=== PATIENT | female | born 1975 | race Caucasian/White ===

== ENCOUNTER 2016-11-16 21:05 | Emergency (ER) | payer OTHER ==
[~2016-11-16] VITALS: Ht 177.8 cm; Wt 76.2 kg
[2016-11-16] MEDS ORDERED: IV NS 0.9% 1,000 ML ONE (21:14)
[2016-11-16] MEDS ORDERED: IV SET PRIMARY 1 EA INFUS.SET MC ONE (21:14)
[2016-11-16] MEDS ORDERED: ONDANSETRON HCL/PF 4 MG/2 ML VIAL ONE (21:14)
[2016-11-16] MEDS ORDERED: HYDROMORPHONE 1 MG/1 ML DISP.SYRIN ONE ×2 (21:14→21:49)
[2016-11-16] MEDS ORDERED: ONDANSETRON HCL/PF - ER 4 MG/2 ML VIAL IV ONE (21:30)
[2016-11-16] MEDS ORDERED: IV NS 0.9% 1,000 ML BAG IV ONE (21:30)
[2016-11-16] MEDS ORDERED: HYDROMORPHONE 1 MG/1 ML DISP.SYRIN IV ONE ×2 (21:30→22:00)
[2016-11-16] MEDS ORDERED: SILVER SULFADIAZINE CREAM 25 GM TUBE TP ONE (22:00)
[2016-11-16] MEDS ORDERED: SILVER SULFADIAZINE CREAM 25 GM TUBE ONE (22:07)
[2016-11-16 22:38] VITALS: BP 124/80
== END 2016-11-16 22:41 | disposition home or self-care (01) ==
LOC: ER 21:10
DX: T23.002A Burn of unspecified degree of left hand, unspecified site, initial encounter (principal); T23.232A Burn of second degree of multiple left fingers (nail), not including thumb, initial encounter; X08.8XXA Exposure to other specified smoke, fire and flames, initial encounter; Y93.G3 Activity, cooking and baking; Y92.89 Other specified places as the place of occurrence of the external cause; Y99.8 Other external cause status; Z88.0 Allergy status to penicillin; Z88.1 Allergy status to other antibiotic agents
CPT/HCPCS: A4606; J1170; J2405; J7030; Z7610

== ENCOUNTER 2017-05-01 17:40 | Emergency (ER) | payer OTHER ==
[~2017-05-01] VITALS: Ht 177.8 cm; Wt 74.8 kg
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
--- NOTE | 2017-05-01 19:42 | NUR ---
Patient discharged to home in stable condition. Written and verbal after care instructions given. Patient verbalizes understanding of instruction. AMBULATORY WITH STEADY GAIT.
--- NOTE | 2017-05-01 19:51 | NUR ---
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 Written and verbal after care instructions given. Patient verbalizes understanding of instruction.
[2017-05-01 19:52] VITALS: BP 131/82
== END 2017-05-01 19:52 | disposition home or self-care (01) ==
LOC: ER 17:41
DX: S13.4XXA Sprain of ligaments of cervical spine, initial encounter (principal); Z88.0 Allergy status to penicillin; Z88.1 Allergy status to other antibiotic agents; W01.0XXA Fall on same level from slipping, tripping and stumbling without subsequent striking against object, initial encounter; Y93.42 Activity, yoga; Y92.89 Other specified places as the place of occurrence of the external cause; Y99.9 Unspecified external cause status
CPT/HCPCS: 72125-TC; 84703-TC; A4606; Z7610

== ENCOUNTER 2017-05-17 16:09 | Emergency (ER) | payer OTHER ==
[~2017-05-17] VITALS: Ht 180.3 cm; Wt 74.8 kg
[2017-05-17] MEDS ORDERED: TETRACAINE HCL/PF 0.5% UD 2 ML BOTTLE ONE (17:40)
--- NOTE | 2017-05-17 17:50 | NUR ---
SUDDEN LEFT EYE PRESSURE; STARTED THIS MORNING.
--- NOTE | 2017-05-17 17:51 | NUR ---
SEEN BY CRISTHIAN ARREDONDO
--- NOTE | 2017-05-17 17:54 | NUR ---
US OF THE LEFT - ORDERED
[2017-05-17] MEDS ORDERED: LORAZEPAM 1 MG TABLET PO ONE (19:00)
[2017-05-17] MEDS ORDERED: LORAZEPAM 1 MG TABLET ONE (19:29)
--- NOTE | 2017-05-17 20:20 | NUR ---
CALLED [facility] SPOKE WITH MATTHEW, HE SAID HE WOULD CALL ME BACK.
[2017-05-17 21:25] VITALS: BP 136/84
== END 2017-05-17 21:28 | disposition home or self-care (01) ==
LOC: ER 16:11
DX: H40.052 Ocular hypertension, left eye (principal); H33.22 Serous retinal detachment, left eye; Z88.0 Allergy status to penicillin; Z88.1 Allergy status to other antibiotic agents
CPT/HCPCS: A4606; Z7610

== ENCOUNTER 2019-12-19 10:31 | Emergency (ER) | payer MEDICAID, OTHER ==
[~2019-12-19] VITALS: Ht 177.8 cm; Wt 59.9 kg
[2019-12-19 10:47] VITALS: BP 113/82
[2019-12-19 11:35] LABS: BASOPHILS % (AUTO) 0.6 % (0.0-2.0); EOSINOPHILS % (AUTO) 3.4 % (0.0-6.0); HEMATOCRIT 38 % (33-45); HEMOGLOBIN 12.4 g/dL (11.5-14.8); LYMPHOCYTES # (AUTO) 1.5 /CMM (0.8-4.8); LYMPHOCYTES % (AUTO) 20.7 % (20.0-44.0); MEAN CORPUSCULAR HGB CONC 33 g/dl (31.0-36.0); MEAN CORPUSCULAR VOLUME 95 fL (82-100); MONOCYTES # (AUTO) 0.6 /CMM (0.1-1.30); MONOCYTES % (AUTO) 7.9 % (2.0-12.0); NEUTROPHILS % (AUTO) 67.4 % (43.0-81.0); PLATELET COUNT (AUTO) 203 /CMM (150-450); RED BLOOD CELL COUNT(AUTO) 4.01 MIL/uL (4.0-5.2); WHITE BLOOD COUNT (AUTO) 7.4 K/uL (4.3-11.0)
[2019-12-19 11:49] LABS: ALANINE AMINOTRANSFERASE 41 U/L (12-78); ALBUMIN 3.9 g/dL (3.4-5.0); ALCOHOL, BLOOD < 3 mg/dL (0-0); ALKALINE PHOSPHATASE 68 U/L (46-116); ASPARTATE AMINOTRANSFERASE 26 U/L (15-37); BILIRUBIN,DIRECT 0.1 mg/dL (0.0-0.2); BILIRUBIN,TOTAL 0.5 mg/dL (0.2-1.0); CARBON DIOXIDE 30 mmol/L (21-32); CHLORIDE 104 mmol/L (98-107); CREATININE 0.7 mg/dL (0.6-1.3); GLUCOSE 98 mg/dL (74-106); POTASSIUM 3.9 mmol/L (3.5-5.1); SALICYLATE 2.7 mg/dL (2.8-20.0); SODIUM SERUM 141 mmol/L (136-145); UREA NITROGEN, BLOOD 14 mg/dL (7-18)
[2019-12-19 11:50] LABS: ACETAMINOPHEN < 10 ug/ml (10-30)
[2019-12-19 11:53] LABS: CALCIUM, SERUM 8.9 mg/dL (8.5-10.1)
--- NOTE | 2019-12-19 13:31 | NUR ---
Patient discharged to home in stable condition. Written and verbal after care instructions given. Patient verbalizes understanding of instruction.
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
== END 2019-12-19 13:33 | disposition home or self-care (01) ==
LOC: ER 10:33
DX: F41.0 Panic disorder [episodic paroxysmal anxiety] (principal); F32.9 Major depressive disorder, single episode, unspecified; Z98.890 Other specified postprocedural states; Z88.0 Allergy status to penicillin; Z88.1 Allergy status to other antibiotic agents
CPT/HCPCS: 36415; 80048; 80076; 80307; 80329; 85025; 99284; G0480